=== PATIENT | female | born 1990 | race African-American/Black ===

== ENCOUNTER 2022-11-30 14:28 | Emergency (ER) | payer MEDICAID, SELFPAY ==
[2022-11-30 14:39] VITALS: BP 110/75; PULSE 106; RESP 18; TEMP 36.8; O2SAT 99; BMI 39.5
--- NOTE | 2022-11-30 16:10 | ED_ITS ---
HPI - General Adult General Time Seen by Provider: 16:10 Date Seen: 11/30/22 Chief complaint: Flank Pain Stated complaint: Diabetic complications, kidney pain Time Seen by Provider: 11/30/22 15:59 Source: patient Mode of arrival: ambulatory Limitations: no limitations History of Present Illness HPI narrative: 32-year-old female with history of diabetes who presents today with bilateral flank pain. This is been going on for 2 days. Pain is constant, sharp and stabbing. Denies hematuria or dysuria the. Denies diarrhea. Denies abdominal pain, does note nausea and vomiting. She is diabetic, has not been checking her sugars recently. She denies chest pain or shortness of breath. Had some chills but no recorded fever. No cough or running Related Data Previous Rx's Medication Instructions Recorded cefdinir 300 mg capsule 300 mg PO BID #14 caps 11/30/22 ondansetron 4 mg disintegrating 4 mg PO Q6H PRN Nausea And 11/30/22 tablet Vomiting #20 tabs Allergies Allergy/AdvReac Type Severity Reaction Status Date / Time adhesive Allergy Intermediate rash Verified 11/30/22 14:44 PFSH PFSH Social History Smoking Status: Never smoker Do you use any of these nicotine containing products: None How often do you have a drink containing alcohol: never AUDIT-C Alcohol total score: 0 Non-prescribed substance use: denies use Exam Narrative: Exam Narrative: General: Well-developed and well-nourished, crying and appears anxious Head: Atraumatic and normocephalic Eyes: Pupils are equal reactive, extraocular motions intact, conjunctiva clear ENT: External nose and ears are normal, posterior pharynx without erythema or exudate Neck: No midline cervical tenderness, full spontaneous range of motion the neck, trachea midline, no adenopathy Heart: Tachycardic rhythm, regular rate Lungs: Clear to auscultation bilaterally without wheezes or crackles Abdomen: Soft, mild diffuse tenderness, nondistended with active bowel sounds, bilateral CVA tenderness Musculoskeletal: No tenderness, deformity, or edema Neurologic: Awake, alert, and oriented x3, no gross focal neurologic deficits, cranial nerves intact as tested Psych: Mood and affect are appropriate Skin: No rashes Const: Vital Signs, click to edit/add: Vital Signs - 24 hr 11/30/22 14:39 11/30/22 17:50 Temperature 98.2 F Pulse Rate [Pulse Oximeter] 106 H 103 H Respiratory Rate 18 22 Blood Pressure [Ri ght Upper Arm] 110/75 131/74 Pulse Oximetry 99 100 Oxygen Delivery Me thod Room Air Room Air Course Course Hospital Course: 4:16 p.m. patient seen examined, prior records are reviewed. Patient presents with flank pain, she is diabetic. She is tachycardic on hypotensive. Mild diffuse abdominal tenderness, also bilateral CVA tenderness but denies urinary symptoms. Differential diagnosis includes but not limited to pyelonephritis, ureteral obstruction, ureter obstruction, enteritis, acute cholecystitis, pancreatitis, gastroenteritis, musculoskeletal pain. Labs are ordered, will defer imaging until labs returned. Toradol and Zofran are ordered. Reevaluation(s) Reevaluation #1: Lives independently interpreted by me demonstrate normal white blood cell count, mild anemia. Urine dipstick without evidence for infection but 4+ ketones as well as glucose, concern for possible DKA. Time: 16:53 Reevaluation #2: Labs independently interpreted by me demonstrate mild hyponatremia, patient is getting normal saline IV. Also hyperglycemia but normal bicarbonate and no anion gap. Urine ketones likely reflect fluid status combined with ketosis but no acidosis noted. Additional IV fluids are ordered. Time: 17:32 Reevaluation #3: Labs independently interpreted by me demonstrate a respiratory alkalosis, no evidence for metabolic acidosis or DKA. Hepatic function panels demonstrate elevated alkaline phosphatase is slightly elevated AST as well. Quantitative hCG is pending. Given abdominal pain and elevated LFTs, upper abdominal ultrasound will be ordered to evaluate for acute cholecystitis although lipase is normal. If this is reassuring, patient can be discharged with symptom management and follow-up. If beta-hCG is above the discriminatory zone, pelvic ultrasound will be ordered as well to evaluate for intrauterine in this patient who was not aware she was . Time: 18:04 Additional Reevaluation(s): 6:24 p.m. urine micro demonstrates some bacteria and white blood cells. Given flank pain and , patient will be given Rocephin in the emergency department and plan to discharge with Omnicef. 6:53 p.m. right upper quadrant ultrasound is negative for any acute findings. Pelvic ultrasound demonstrates intrauterine gestational sac 5+2 consistent with dates, LMP 10/27/22 EGA 4+6, EDC 08/03/2023. Patient is stable for discharge. Vital Signs Vital signs: Initial Vital Signs Temperature 98.2 F 11/30/22 14:39 Temperature Source Oral 11/30/22 14:39 Pulse Rate 106 H 11/30/22 14:39 Pulse Rhythm 11/30/22 14:39 Pulse Strength 3+ Normal 11/30/22 14:39 Respiratory Rate 18 11/30/22 14:39 Blood Pressure 110/75 11/30/22 14:39 Blood Pressure Mean 86 11/30/22 14:39 Pulse Oximetry 99 11/30/22 14:39 Oxygen Delivery Method 11/30/22 14:39 Vital Signs Temperature 98.2 F 11/30/22 14:39 Pulse Rate 106 H 11/30/22 14:39 Respiratory Rate 18 11/30/22 14:39 Blood Pressure 110/75 11/30/22 14:39 Pulse Oximetry 99 11/30/22 14:39 Oxygen Delivery Method 11/30/22 14:39 Temperature 98.2 F 11/30/22 14:39 Pulse Rate 103 H 11/30/22 17:50 Respiratory Rate 22 11/30/22 17:50 Blood Pressure 131/74 11/30/22 17:50 Pulse Oximetry 100 11/30/22 17:50 Oxygen Delivery Method 11/30/22 17:50 Medical Decision Making Lab Data Labs: Lab Results 11/30/22 11/30/22 11/30/22 Range/Units 16:16 16:16 16:16 WBC 9.93 (4.50-11.00) K/uL RBC 4.55 (4.00-5.20) m/uL Hgb 13.0 (12.0-16.0) gm/dL Hct 36.7 (33.0-51.0) % MCV 81 (80-100) fL MCH 29 (26-34) pg MCHC 35 (32-36) gm/dL RDW Coeff of Karo 11.0 L (11.5-15.5) % Plt Count 279 (140-440) K/uL Neut % (Auto) 76.0 H (42.0-72.0) % Lymph % (Auto) 14.2 L (20-44) % [place] % (Auto) 9.1 (0.0-11.0) % Eos % (Auto) 0.1 (0.0-7.0) % Baso % (Auto) 0.3 (0.0-3.0) % Neut # (Auto) 7.50 H (1.7-7.0) K/uL Lymph # (Auto) 1.40 (0.90-2.90) K/uL [place] # (Auto) 0.90 (0.00-0.90) K/UL Eos # (Auto) 0.01 (0.00-0.50) K/uL Baso # (Auto) 0.03 (0.00-0.30) K/uL VBG pH (7.32-7.43) VBG pCO2 (40-50) mmHG VBG pO2 (25-47) mmHG VBG HCO3 (21-28) mmol/L Sodium 128 L (135-149) mmol/L Potassium 5.0 (3.6-5.1) mmol/L Chloride 95 L (96-114) mmol/L Carbon Dioxide 22 (20-32) mmol/L BUN 7 (5-24) mg/dL Creatinine 0.7 (0.5-1.5) mg/dL Estimated Creat Clear 92.94 Estimated GFR 119 ml/min Glucose 339 H (60-115) mg/dL Calcium 9.6 (8.4-10.6) mg/dL Total Bilirubin (0.1-1.5) mg/dL Direct Bilirubin (0.0-0.5) mg/dL AST (12-35) U/L ALT (4-35) U/L Alkaline Phosphatase (40-150) U/L Total Protein (6.0-8.3) g/dL Albumin (3.3-5.0) g/dL Lipase (23-300) U/L HCG, Quant mIU/mL Urine Color Yellow (Yellow) Urine Appearance Cloudy A (Clear) Urine pH 5.5 (5.0-8.5) Ur Specific [place] <= 1.005 (1.000-1.030) Urine Protein Negative (Negative) Urine Glucose (UA) 2+ A (Negative) Urine Ketones 4+ A (Negative) Urine Blood Negative (Negative) Urine Nitrite Negative (Negative) Urine Bilirubin Negative (Negative) Urine Urobilinogen 0.2 (0.2-1.0) Ur Leukocyte Esterase Negative (Negative) Urine RBC 0-2 (0-2) Urine WBC 5-10 A (0-5) Ur Squamous Epith Cells Few (None-Few) Urine Bacteria Few A (None) Urine HCG, Qual (Negative) 11/30/22 11/30/22 11/30/22 Range/Units 16:16 16:16 17:34 WBC (4.50-11.00) K/uL RBC (4.00-5.20) m/uL Hgb (12.0-16.0) gm/dL Hct (33.0-51.0) % MCV (80-100) fL MCH (26-34) pg MCHC (32-36) gm/dL RDW Coeff of Karo (11.5-15.5) % Plt Count (140-440) K/uL Neut % (Auto) (42.0-72.0) % Lymph % (Auto) (20-44) % [place] % (Auto) (0.0-11.0) % Eos % (Auto) (0.0-7.0) % Baso % (Auto) (0.0-3.0) % Neut # (Auto) (1.7-7.0) K/uL Lymph # (Auto) (0.90-2.90) K/uL [place] # (Auto) (0.00-0.90) K/UL Eos # (Auto) (0.00-0.50) K/uL Baso # (Auto) (0.00-0.30) K/uL VBG pH 7.489 H (7.32-7.43) VBG pCO2 27 L (40-50) mmHG VBG pO2 23.6 L (25-47) mmHG VBG HCO3 20 L (21-28) mmol/L Sodium (135-149) mmol/L Potassium (3.6-5.1) mmol/L Chloride (96-114) mmol/L Carbon Dioxide (20-32) mmol/L BUN (5-24) mg/dL Creatinine (0.5-1.5) mg/dL Estimated Creat Clear Estimated GFR ml/min Glucose (60-115) mg/dL Calcium (8.4-10.6) mg/dL Total Bilirubin 1.3 (0.1-1.5) mg/dL Direct Bilirubin 1.0 H (0.0-0.5) mg/dL AST 47 H (12-35) U/L ALT 22 (4-35) U/L Alkaline Phosphatase 181 H (40-150) U/L Total Protein 8.0 (6.0-8.3) g/dL Albumin 4.5 (3.3-5.0) g/dL Lipase 79 (23-300) U/L HCG, Quant 2471.80 mIU/mL Urine Color (Yellow) Urine Appearance (Clear) Urine pH (5.0-8.5) Ur Specific [place] (1.000-1.030) Urine Protein (Negative) Urine Glucose (UA) (Negative) Urine Ketones (Negative) Urine Blood (Negative) Urine Nitrite (Negative) Urine Bilirubin (Negative) Urine Urobilinogen (0.2-1.0) Ur Leukocyte Esterase (Negative) Urine RBC (0-2) Urine WBC (0-5) Ur Squamous Epith Cells (None-Few) Urine Bacteria (None) Urine HCG, Qual POSITIVE H (Negative) Discharge Plan Discharge Clinical Impression: Urinary tract infection, as incidental finding, Diabetes mellitus with ketosis Patient Disposition: Home, Self-Care Condition: Stable Instructions: Abdominal Pain in (ED), Urinary Tract Infection in (ED), Type 2 Diabetes Management for Adults (ED) Additional Instructions: Take Tylenol as needed for pain. Do not take ibuprofen during . Follow-up with children's service worker next week to establish care and for recheck, and with your primary care provider next week. Based on your last period and your ultrasound, your due date would be August 03, 2023. Take antibiotics as prescribed Check your sugars daily Activity Level: No Restrictions Discharge Diet: Diabetic Prescriptions: New ondansetron 4 mg tablet,disintegrating 4 mg PO Q6H PRN (Reason: Nausea And Vomiting) Qty: 20 0RF cefdinir 300 mg capsule 300 mg PO BID Qty: 14 0RF Follow Up/Referrals: Juany Kwon MD [Primary Care Provider] - Stand Alone Forms: [facility] Info Instructions
[2022-11-30 16:34] LABS: Basophils Absolute Auto 0.03 K/uL (0.00-0.30); Basophils Percent Auto 0.3 % (0.0-3.0); Eosinophils Absolute Auto 0.01 K/uL (0.00-0.50); Eosinophils Percent Auto 0.1 % (0.0-7.0); Hematocrit 36.7 % (33.0-51.0); Immature Granulocytes Abs Auto 0.03 K/uL (0.00-0.30); Immature Granulocytes Pct Auto 0.3 %; Lymphocytes Percent Auto 14.2 % (20-44); Mean Corpuscular HGB Conc 35 gm/dL (32-36); Mean Corpuscular Hemoglobin 29 pg (26-34); Mean Corpuscular Volume 81 fL (80-100); Monocytes Percent Auto 9.1 % (0.0-11.0); Platelet Count* 279 K/uL (140-440); Red Blood Count 4.55 m/uL (4.00-5.20); White Blood Count* 9.93 K/uL (4.50-11.00)
[2022-11-30 16:40] LABS: Slide Review Reflex No
[2022-11-30 16:43] LABS: Ur HCG Qualitative* POSITIVE (Negative)
[2022-11-30 16:47] LABS: Appearance Urine Cloudy (Clear); Bilirubin Urine Negative (Negative); Blood Urine Negative (Negative); Color Urine Yellow (Yellow); Glucose Urine 2+ (Negative); Ketones Urine 4+ (Negative); Leukocyte Esterase Urine Negative (Negative); Nitrite Urine Negative (Negative); Protein Urine Negative (Negative); Specific Gravity Urine <= 1.005 (1.000-1.030); Urobilinogen Urine 0.2 (0.2-1.0); pH Urine 5.5 (5.0-8.5)
[2022-11-30 16:52] LABS: Chloride* 95 mmol/L (96-114)
[2022-11-30] MEDS: 0.9 % SODIUM CHLORIDE 1000 ml 1,000 ML IV ×2 (16:52→18:30)
[2022-11-30 16:55] LABS: Blood Urea Nitrogen* 7 mg/dL (5-24); Calcium* 9.6 mg/dL (8.4-10.6); Carbon Dioxide* 22 mmol/L (20-32); Creatinine* 0.7 mg/dL (0.5-1.5); Est. Creatinine Clearance* 92.94; Estimated Glomerular Filt Rate 119 ml/min; Glucose* 339 mg/dL (60-115)
[2022-11-30] MEDS: ONDANSETRON 2 MG/ML inj 4 MG IVP (16:56)
[2022-11-30 17:10] LABS: Sodium* 128 mmol/L (135-149)
[2022-11-30 17:41] LABS: HCO3 VBG 20 mmol/L (21-28); PCO2 VBG 27 mmHG (40-50); PO2 VBG 23.6 mmHG (25-47); pH VBG 7.489 (7.32-7.43)
[2022-11-30 17:45] LABS: Albumin* 4.5 g/dL (3.3-5.0)
[2022-11-30 17:48] LABS: Alanine Aminotransferase* 22 U/L (4-35); Alkaline Phosphatase* 181 U/L (40-150); Aspartate Amino Transferase* 47 U/L (12-35); Bilirubin Total* 1.3 mg/dL (0.1-1.5); Lipase* 79 U/L (23-300)
[2022-11-30] MEDS: MORPHINE 2 MG/ML inj IVP (17:49)
[2022-11-30 17:50] VITALS: BP 131/74; PULSE 103; RESP 22; O2SAT 100
--- NOTE | 2022-11-30 18:07 | CRLHL7_ITS ---
For Patients: As a result of the Century Cures Act, medical imaging exams and procedure reports are released immediately into your electronic medical record. You may view this report before your referring provider. If you have questions, please contact your health care provider. INDICATION: Abdominal pain. TECHNIQUE: Ultrasound OB pelvis transabdominal and transvaginal. Real-time issa-scale imaging of the pelvis was performed. COMPARISON: None. FINDINGS: There is a single intrauterine gestational sac, with a mean sac diameter of 6.67 millimeters, which correlates with a gestational age of 5 weeks, 2 days. Tiny 2.3 centimeter yolk sac seen. No definite pole. There is a normal appearing yolk sac. There are no gross abnormalities noted within the embryo at this early state of development. The placenta has not yet developed. There is no sign of perigestational hemorrhage. Few small fibroids, measuring up to 2.3 centimeters. The ovaries are of normal size. 3.4 centimeter right simple ovarian cyst. Likely 2.2 centimeter left ovarian corpus luteal cyst. There are no suspicious fluid collections noted in the cul-de-sac. IMPRESSION: Single intrauterine gestational sac, with mean sac diameter of 6.67 millimeters, which correlates with a gestational age of 5 weeks, 2 days. No definite pole identified, possibly related to early gestation. Recommend OB Gyne follow-up, continued trending beta HCG, and short-term ultrasound. Probable 2.2 centimeter left ovarian corpus luteal cyst. This could be followed up with on subsequent imaging. Dictated by Josué Marques MD @ 11/30/2022 7:19:00 PM (Electronically Signed)
--- NOTE | 2022-11-30 18:07 | CRLHL7_ITS ---
For Patients: As a result of the Century Cures Act, medical imaging exams and procedure reports are released immediately into your electronic medical record. You may view this report before your referring provider. If you have questions, please contact your health care provider. INDICATION: Abdominal pain. Elevated LFTs. TECHNIQUE: Ultrasound abdomen limited. Sonographic images of the right upper quadrant were obtained using issa-scale and color Doppler images. COMPARISON: CT abdomen/pelvis dated 10/13/2021. FINDINGS: Liver: Echogenicity of the liver parenchyma is within normal limits. Bile ducts: Intrahepatic bile ducts are not dilated. The common bile duct measures 0.3 cm. Gallbladder: No cholelithiasis, significant gallbladder wall thickening, or pericholecystic fluid identified. Pancreas: Pancreas is poorly visualized secondary to acoustic shadowing from overlying/adjacent bowel gas. Right kidney: The right kidney measures 11.3 cm in length. No renal calculi or significant hydronephrosis is identified. IMPRESSION: No acute intra-abdominal abnormality identified sonographically. Dictated by Jake Velasco MD @ 11/30/2022 7:17:28 PM (Electronically Signed)
[2022-11-30 18:17] LABS: Bacteria Urine Few; RBC Urine 0-2 (0-2); Squamous Epithelial Cell Urine Few (None-Few)
[2022-11-30] MEDS: cefTRIAXone 1 GM in 0.9 % SODIUM CHLORIDE Mini-bag 100 ML IVPB (19:33)
== END 2022-11-30 20:04 | disposition home or self-care (01) ==
PROVIDERS: Emergency Provider Family Medicine; PCP Family Medicine
DX: N39.0 Urinary tract infection, site not specified (principal); E11.10 Type 2 diabetes mellitus with ketoacidosis without coma; Z33.1 Pregnant state, incidental
CPT/HCPCS: 36415; 76705; 76801; 80048; 80076; 81001; 81025; 82803; 83690; 84702; 85025; 87086; 93976; 96365; 96375; 99284; J0696; J2270; J2405; J7030

== ENCOUNTER 2023-01-23 08:43 | Emergency (ER) | payer MEDICAID, SELFPAY ==
[2023-01-23 08:51] VITALS: BP 117/91; PULSE 92; RESP 18; TEMP 36.4; O2SAT 99; BMI 39.0
--- NOTE | 2023-01-23 09:12 | CRLHL7_ITS ---
For Patients: As a result of the Cures Act, medical imaging exams and procedure reports are released immediately into your electronic medical record. You may view this report before your referring provider. If you have questions, please contact your health care provider. Indication: Fall, injury Technique: Three views Comparison: None Findings: Bones: There is an oblique fracture of the lateral malleolus at the joint line with 3 millimeters lateral displacement of the distal fracture fragment. Joint spaces: Mild widening of the medial aspect of the bony mortise. Soft tissues: Prominent lateral soft tissue swelling. Dictated by Yeison Miller MD @ 01/23/2023 11:07:14 AM (Electronically Signed)
[2023-01-23] MEDS: ACETAMINOPHEN 500 MG TABLET 1000 MG PO (09:18)
[2023-01-23] MEDS: IBUPROFEN 400 MG TABLET 800 MG PO (09:19)
--- NOTE | 2023-01-23 10:08 | ED_ITS ---
HPI - Extremity Injury (Lower) General Date Seen: 01/23/23 Chief Complaint: Extremity Pain/Injury, Lower Stated Complaint: Fall/Ankle injury Time Seen by Provider: 01/23/23 08:48 Source: patient Mode of arrival: ambulatory Limitations: no limitations History of Present Illness HPI Narrative: Patient is a very nice 32-year-old female presents here after slip and in the ice, and an inversion injury of her left ankle, she complains of pain over the lateral malleolar region of her ankle, with some numbness, of this area also. She says she is really unable to bear weight no hobbled in here, jumping on her other foot. This occurred when she was dropping her daughter off at daycare. No previous history of ankle injury. She denies any other injury to her neck back head hip or knee. She did not take anything for the discomfort, and I see her in room 4. Injury: Left: ankle Type of Injury: inversion Place: school Severity: moderate Relieving factors: nothing Exacerbating factors: weight bearing, movement and palpation Context: walking Associated symptoms: snap/pop sensation Other symptoms: none Related Data Home Medications Medication Instructions Recorded Confirmed aspirin 81 mg tablet,delayed 81 mg PO DAILY 01/23/23 01/23/23 release atorvastatin 20 mg tablet 20 mg PO QPM 01/23/23 01/23/23 etonogestrel 0.12 mg-ethinyl vag ring vaginal 01/23/23 estradiol 0.015 mg/24 hr vaginal ring exenatide microspheres 2 mg/0.85 mg subcut 01/23/23 mL subcutaneous auto-injector ([email or web address]) linagliptin 5 mg tablet (Tradjenta) 5 mg PO DAILY 01/23/23 01/23/23 metformin 500 mg tablet,extended 2,000 mg PO DAILY 01/23/23 01/23/23 release 24 hr Allergies Allergy/AdvReac Type Severity Reaction Status Date / Time adhesive Allergy Intermediate rash Verified 01/23/23 08:50 Review of Systems Status of ROS: Reports: 6 or more systems reviewed and unremarkable except as noted in History and below PFSH PFS Social History Smoking Status: Never smoker Do you use any of these nicotine containing products: None How often do you have a drink containing alcohol: never AUDIT-C Alcohol total score: 0 Non-prescribed substance use: denies use Exam Narrative: Exam Narrative: Patient is seen in room 4 she is in no apparent distress, her left ankle shows swelling over the lateral malleolar region, she can bring her foot to midline, or neutral position. DP and posterior tibial pulses are normal, no significant deformity is noted other than the swelling over the lateral malleolar region. Distal compression of the tib-fib does not reproduce any discomfort. I am unable to really invert or tom her ankle due to the discomfort. No open component bleeding is noted. Const: Vital Signs, click to edit/add: Vital Signs - 24 hr 01/23/23 08:51 Temperature 97.6 F Pulse Rate [Right Pulse Oximeter] 92 Respiratory Rate 18 Blood Pressure [Ri ght Upper Arm] 117/91 H Pulse Oximetry 99 Oxygen Delivery Me thod Room Air Documenting provider has reviewed patient's vital signs: yes Course Vital Signs Vital signs: Initial Vital Signs Temperature 97.6 F 01/23/23 08:51 Temperature Source Temporal Artery Scan 01/23/23 08:51 Pulse Rate 92 01/23/23 08:51 Respiratory Rate 18 01/23/23 08:51 Blood Pressure 117/91 H 01/23/23 08:51 Blood Pressure Mean 99 01/23/23 08:51 Blood Pressure Position Sitting 01/23/23 08:51 Pulse Oximetry 99 01/23/23 08:51 Oxygen Delivery Method 01/23/23 08:51 Vital Signs Temperature 97.6 F 01/23/23 08:51 Pulse Rate 92 01/23/23 08:51 Respiratory Rate 18 01/23/23 08:51 Blood Pressure 117/91 H 01/23/23 08:51 Pulse Oximetry 99 01/23/23 08:51 Oxygen Delivery Method 01/23/23 08:51 Temperature 97.6 F 01/23/23 08:51 Pulse Rate 92 01/23/23 08:51 Respiratory Rate 18 01/23/23 08:51 Blood Pressure 117/91 H 01/23/23 08:51 Pulse Oximetry 99 01/23/23 08:51 Oxygen Delivery Method 01/23/23 08:51 MDM - Extremity Injury (Lower) Differential Diagnosis Differential diagnosis: Likely ankle sprain and strain, acute internal derangement of knee, fracture of hip, puncture wound of foot, fracture of toe and ankle fracture Medical Records Attestation: I reviewed the patient's medical records. Imaging Data Ankle x-ray: Attestation: I have reviewed the pertinent imaging results. My impression: Left ankle x-ray shows a mildly displaced left malleolar/left distal fibular fracture, there is no significant moretise change, rest of the anchor stray of the ankle looks good. Soft tissue swelling is noted. Radiologist's impression: atient: BRODY FREGOSO Facility:?[facility] Patient ID:?[id number] Site Patient ID:?[id number]. Site :?[id number] Study:?XRay Extremity Left ANKLE-01/23/2023 10:00:06 AM Ordering Physician:Shayna Ramirez Final Report: Indication: Fall, injury Technique: Three views Comparison: None Findings: Bones: There is an oblique fracture of the lateral malleolus at the joint line with 3 millimeters lateral displacement of the distal fracture fragment. Joint spaces: Mild widening of the medial aspect of the bony mortise. Soft tissues: Prominent lateral soft tissue swelling. Dictated by Yeison Miller MD @ 01/23/2023 11:07:14 AM (Electronic Signature) Discharge Plan Discharge Clinical Impression: Closed fibular fracture Patient Disposition: Home, Self-Care Condition: Stable Instructions: Leg Fracture (ED) Additional Instructions: Home rest use of nonweightbearing and crutches, Tylenol ibuprofen for the discomfort, may use stronger pain medications do not combine these with alcohol or drive. Follow-up with orthopedics as directed. Return as needed. Follow up appointment is scheduled at the [facility] on 01/26 with a 10:30am arrival time. If you have any questions or need to reschedule, please call [phone]. [facility] [place] [address] Prescriptions: No Action atorvastatin 20 mg tablet 20 mg PO QPM aspirin 81 mg tablet,delayed release (DR/EC) 81 mg PO DAILY metformin 500 mg tablet extended release 24 hr 2,000 mg PO DAILY etonogestrel-ethinyl estradiol 0.12-0.015 mg/24 hr ring vaginal Tradjenta 5 mg tablet 5 mg PO DAILY Bydureon BCise 2 mg/0.85 mL auto-injector subcut Follow Up/Referrals: Juany Kwon MD [Primary Care Provider] - Stand Alone Forms: [facility] Info Instructions Procedures Orthopedic Splinting/Casting Injury #1: Side: left Lower Extremity Injury Location: ankle Lower extremity immobilizer: short leg Applied by clinician: /DO Other Orthopedic Equipment: crutches Conclusion: patient tolerated procedure Additional Comments: Post splint placement she had a good DP pulse, good movement of her toes, she felt improved. Neurologically intact.
== END 2023-01-23 12:03 | disposition home or self-care (01) ==
PROVIDERS: Emergency Provider Family Medicine; PCP Family Medicine
DX: S82.402A Unspecified fracture of shaft of left fibula, initial encounter for closed fracture (principal); W00.9XXA Unspecified fall due to ice and snow, initial encounter
CPT/HCPCS: 29515; 73610; 99283; 99284; A9270

== ENCOUNTER 2023-02-02 10:02 | Day surgery (SDC) | payer MEDICAID, SELFPAY ==
[2023-02-02] VITALS (12 sets, daily range): BP systolic 101–124; BP diastolic 69–92; PULSE 62–85; RESP 9–18; TEMP 36.1–36.6; O2SAT 91–100; BMI 38.9
[2023-02-02] MEDS: LACTATED RINGERS 1000 ML 1,000 ML 100 ML IV (10:30)
[2023-02-02] MEDS: SODIUM CHLORIDE 0.9 % (FLUSH) 10 ML SYRINGE IVF (10:30)
--- NOTE | 2023-02-02 10:41 | SUR.PREOP ---
Patient provided home covid negative results to RN.
--- NOTE | 2023-02-02 11:45 | CRLHL7_ITS ---
For Patients: As a result of the Cures Act, medical imaging exams and procedure reports are released immediately into your electronic medical record. You may view this report before your referring provider. If you have questions, please contact your health care provider. Indication: Left ankle ORIF Technique: 4 fluoroscopic images of the left ankle. Fluoroscopic time 60.8 seconds. IMPRESSION: Fluoroscopic guidance for ORIF distal fibular fracture. Dictated by Duane Dong MD @ 02/04/2023 9:34:02 AM (Electronically Signed)
[2023-02-02] MEDS: fentaNYL 100 MCG/2 ML inj IVP (11:56)
[2023-02-02] MEDS: MIDAZOLAM HCL 1 MG/ML inj IVP (11:56)
--- NOTE | 2023-02-02 12:02 | W.PM.NB ---
Nerve Block Nerve Block Time Seen by Provider: 12:02 Date Seen: 02/02/23 Type of block requested by surgeon for post-operative analgesia: adductor canal Side: left Time out performed: Yes Verification of patient name: Yes Verification of date of : Yes Site marking: site marked Name of person performing procedure: Peña Continuous monitoring Was continuous monitoring of O2 sat, B/P, environmental monitoring technician, recorded every 15 minutes?: Yes Procedure Checklist: sterile prep, needles and gloves Ultrasound guided. Images saved: Yes Medications given in 5ml increments after negative aspiration: Ropivicaine %: 0.5 mL: 20 Needle gauge: 20 Patient tolerated procedure well: Yes Additional comments: Needle noted adjacent to nerve Block Charges Block Charge (with Pro Fee): Femoral Nerve Use of Ultrasound Machine for Block: Yes- US Guidance/pain block
--- NOTE | 2023-02-02 12:03 | W.PM.NB ---
Nerve Block Nerve Block Time Seen by Provider: 12:02 Date Seen: 02/02/23 Type of block requested by surgeon for post-operative analgesia: popliteal Side: left Time out performed: Yes Verification of patient name: Yes Verification of date of : Yes Site marking: site marked Name of person performing procedure: Peña Continuous monitoring Was continuous monitoring of O2 sat, B/P, nurse emergency, recorded every 15 minutes?: Yes Procedure Checklist: sterile prep, needles and gloves Ultrasound guided. Images saved: Yes Medications given in 5ml increments after negative aspiration: Ropivicaine %: 0.5 mL: 20 Needle gauge: 22 Patient tolerated procedure well: Yes Additional comments: Needle noted adjacent to nerve Block Charges Block Charge (with Pro Fee): Sciatic Nerve Use of Ultrasound Machine for Block: Yes- US Guidance/pain block
--- NOTE | 2023-02-02 12:04 | W.ANESCHARGE ---
Anesthesia Charges Start Date/Time Anesthesia Start Date: 02/02/23 Anesthesia Start Time: 12:12 Stop Date/Time Anesthesia Stop Date: 02/02/23 Anesthesia Stop Time: 13:41
--- NOTE | 2023-02-02 12:08 | SUR.PREOP ---
TIME?OUT:?1155 PT/mariana RN/KYLER [place]?VERIFICATION?OF?SURGICAL?SITE,?PROCEDURE,?AND?CONSENT OBTAINED?PRIOR?TO?INVASIVE?PROCEDURE.
--- NOTE | 2023-02-02 13:14 | PM.ORPRC ---
Procedure Note Date of procedure: 02/02/23 Procedure: PREOPERATIVE DIAGNOSES: 1. Left ankle Bimalleolar equivalent fracture, closed, acute POSTOPERATIVE DIAGNOSES: 1. Left ankle Bimalleolar equivalent fracture, closed, acute NAME OF OPERATION: 1. Left ankle lateral malleolus open reduction with internal fixation 2. [id number] - intraoperative fluoroscopy up to 1 hour. SURGEON: Sebastián Lindo MD DEPUTY SHERIFF BAILIFF: Yariel Velasquez PA-C Of note, an pediatric medical assistant was critical for this case to aide in patient positioning, leg manipulation, tissue retraction, closure, & splinting. ANESTHESIA: spinal plus Regional block EBL: 10 mL IMPLANTS: Arthrex fibulock 3.0 mm distal fibular intramedullary nail with 3.0 and 3.5 mm cortical nonlocking screws distally (total of 2 screws) and an end cap. TOURNIQUET: none INDICATIONS: The patient is a pleasant 32-year-old female who sustained a left ankle injury in the recent past with difficulty bearing weight. Workup included xrays which revealed an unstable ankle fracture as noted above. Given these findings, surgery was recommended to stablize the ankle. FINDINGS: Closed, comminuted, displaced lateral malleolus ankle fracture but stress radiographs revealed bimalleolar equivalent. There was edematous tissue throughout the ankle which was moderate, and some erythema within the medial ankle tissues consistent with pressure from her injury. PROCEDURE: Following a thorough discussion of risks, benefits, and alternatives, consent was obtained and the left ankle was marked. The patient was brought to the operating room and placed supine on the operating table. Induction of anesthesia was undertaken. Appropriate time out was performed identifying proper patient, site and procedure. 2 g IV Ancef was administered within 1 hour of incision preoperatively. The left lower extremity was prepped and draped in the appropriate sterile fashion using ChloraPrep. At this stage, attention was turned to the lateral malleolus fixation. Initially, a lateral x-ray helped us with the general alignment of where the guide pin would track. This was drawn on the skin for future reference. We then entered the distal fibula with a guide pin at the fibular tip according to the technique guide. It was passed into the fibula and after confirming on both AP and lateral fluoroscopic images, it was found to pass up the fibula approximately 130+ mm. The fracture was held reduced with fingers throughout the reaming to maintain its reduced position. The distal portion of the fibula was then reamed with the opening Reamer, followed by the 3.2 mm Reamer up the fibular diaphysis. The canal was very tight, and thus we progressed slowly and in the toggle fashion so as not to break through the fibula. After proper reaming, the nail was placed. The proximal fins were engaged with the torque limiting screwdriver. Distal interlocking screws were then placed from lateral to medial being cautious not to allow them to penetrate the medial fibular cortex. These had excellent purchase and were necessary given her frail bone quality. Finally, the end cap was placed and confirmed on AP and lateral views to be in appropriate position. After confirming appropriate reduction/positioning on C-arm fluoroscopic imaging, the ankle was tested for syndesmosis stability. External rotation was performed. Indeed it remained stable. No widening of the mortise was appreciated. At this stage, the wound was thoroughly irrigated with normal saline. Closure was performed with 3-0 / 4-0 Vicryl and monocryl, respectively for subcutaneous and subcuticular closure. Dressings were applied and a sugar-tong splint was applied. The patient was awoken from anesthesia and transferred to the PACU in stable condition. PLAN: 1. Elevate operative extremity. 2. Encouraged ice. 3. Percocet for pain as needed. 4. Follow up with PA visit in 2-3 weeks for wound check and splint removal. Transition to CAM boot. Advance weight-bearing slowly over the next 1-2 weeks as tolerated 5. Toe-touch weight-bearing operative lower extremity
--- NOTE | 2023-02-02 13:54 | W.ANESCHARGE ---
Anesthesia Charges Start Date/Time Anesthesia Start Date: 02/02/23 Anesthesia Start Time: 12:12 Stop Date/Time Anesthesia Stop Date: 02/02/23 Anesthesia Stop Time: 13:41
== END 2023-02-02 14:45 | disposition home or self-care (01) ==
PROVIDERS: PCP Family Medicine; Visit Provider Orthopaedic Surgery Sports Medicine
PROC: (CPT 27814; principal; 2023-02-02 11:45)
DX: S82.842A Displaced bimalleolar fracture of left lower leg, initial encounter for closed fracture (principal)
CPT/HCPCS: 27814; 01480; 73610; 76942; 82962; A4580; C1713; C1776; J2250; J2370; J2400; J2405; J2704; J2795; J3010; J7120

== ENCOUNTER 2023-09-21 09:00 | Emergency (ER) | payer MEDICAID, SELFPAY ==
[2023-09-21 09:06] VITALS: BP 131/84; PULSE 98; RESP 16; TEMP 36.8; O2SAT 95; BMI 37.7
--- NOTE | 2023-09-21 09:19 | ED_ITS ---
HPI - General Adult General Chief complaint: Extremity Pain/Injury, Lower Stated complaint: R leg injury Time Seen by Provider: 09/21/23 09:18 History of Present Illness HPI narrative: PT HAS PAIN r LOWER LEG WITH AREA OF SWELLING. FELL 2 DAYS AGO ON PAVEMENT. 33-year-old woman presenting to the emergency department complaint of right lower leg pain. Apparently fell couple days ago noting herself to be clumsy she smiles ruefully. Has began to have increasing pain in her right lower leg since. Feels like something is rubbing there she is worried there might be a ?fracture?. Or that something may have stuck there. Walking definitely exaggerates this pain making it difficult to walk. She did note the swelling there prompting her to take her compression stocking/sleeve off her left leg where she has had an ORIF and place it on the right. She is receiving icing at this time. No cough shortness of breath or chest pain. Related Data Home Medications Medication Instructions Recorded Confirmed aspirin 81 mg tablet,delayed 81 mg PO DAILY 01/23/23 05/15/23 release atorvastatin 20 mg tablet 20 mg PO QPM 01/23/23 05/15/23 etonogestrel 0.12 mg-ethinyl 1 vag ring vaginal 01/23/23 05/15/23 estradiol 0.015 mg/24 hr vaginal ring exenatide microspheres 2 mg/0.85 2 mg subcut Q7D 01/23/23 05/15/23 mL subcutaneous auto-injector ([employer]) metformin 500 mg tablet,extended 2,000 mg PO DAILY 01/23/23 05/15/23 release 24 hr ferrous sulfate 325 mg (65 mg 325 mg PO DAILY 01/31/23 05/15/23 iron) tablet empagliflozin 10 mg tablet 10 mg PO DAILY 05/15/23 05/15/23 (Jardiance) flash glucose sensor (FreeStyle #1 ea 05/15/23 05/15/23 Phoebe 2 Sensor kit) Previous Rx's Medication Instructions Recorded cyclobenzaprine 10 mg tablet 10 mg PO QPM PRN for muscle spasm 08/17/23 #10 tabs Allergies Allergy/AdvReac Type Severity Reaction Status Date / Time adhesive Allergy Intermediate rash Verified 05/15/23 15:30 house dust Allergy Verified 05/15/23 15:30 allergenic extracts Allergy Severe Anaphylaxis Uncoded 05/15/23 15:30 Review of Systems Status of ROS: Reports: 6 or more systems reviewed and unremarkable except as noted in History and below [facility] Medical History Urinary tract infection ?N39.0 - Urinary tract infection, site not specified (ICD-10) Viral upper respiratory tract infection ?J06.9 - Acute upper respiratory infection, unspecified (ICD-10) Sprain of ankle ?S93.409A - Sprain of unspecified ligament of unspecified ankle, initial encounter (ICD-10) Pain in pelvis ?R10.2 - Pelvic and perineal pain (ICD-10) Acute upper respiratory infection ?J06.9 - Acute upper respiratory infection, unspecified (ICD-10) Type 2 diabetes mellitus with hyperglycemia ?E11.65 - Type 2 diabetes mellitus with hyperglycemia (ICD-10) Surgical History S/P ORIF (open reduction internal fixation) fracture (02/02/23) ?Z98.890 - Other specified postprocedural states (ICD-10) ?Z87.81 - Personal history of (healed) traumatic fracture (ICD-10) Previous section ?Z98.891 - History of uterine scar from previous surgery (ICD-10) Family History Mother Diabetes Father Diabetes Social History Smoking Status: Never smoker Do you use any of these nicotine containing products: None How often do you have a drink containing alcohol: monthly or less AUDIT-C Alcohol total score: 1 Non-prescribed substance use: denies use Caffeine: Yes Exam Narrative: Exam Narrative: Very pleasant. NAD. Breathing easily. Skin is warm and dry. I do not see any inflammation or particular swelling the left lower extremity at this time. The right lower leg though has some mild erythema calor and a swelling at the lower fibular area not involving the ankle. There is no swelling or tenderness here. There is pea-sized nodule that seems to be hematoma perhaps under the skin. Exquisitely tender to palpation around this area. Not with tenderness really to the tibial. Const: Vital Signs, click to edit/add: Vital Signs - 24 hr 09/21/23 09:06 Temperature 98.3 F Pulse Rate [Pulse Oximeter] 98 Respiratory Rate 16 Blood Pressure [Ri ght Upper Arm] 131/84 Pulse Oximetry 95 Oxygen Delivery Me thod Room Air Documenting provider has reviewed patient's vital signs: yes Course Vital Signs Vital signs: Initial Vital Signs Temperature 98.3 F 09/21/23 09:06 Temperature Source Temporal Artery Scan 09/21/23 09:06 Pulse Rate 98 09/21/23 09:06 Respiratory Rate 16 09/21/23 09:06 Blood Pressure 131/84 09/21/23 09:06 Blood Pressure Mean 99 09/21/23 09:06 Blood Pressure Position Supine 09/21/23 09:06 Pulse Oximetry 95 09/21/23 09:06 Oxygen Delivery Method Room Air 09/21/23 09:06 Vital Signs Temperature 98.3 F 09/21/23 09:06 Pulse Rate 98 09/21/23 09:06 Respiratory Rate 16 09/21/23 09:06 Blood Pressure 131/84 09/21/23 09:06 Pulse Oximetry 95 09/21/23 09:06 Oxygen Delivery Method Room Air 09/21/23 09:06 Temperature 98.3 F 09/21/23 09:06 Pulse Rate 98 09/21/23 09:06 Respiratory Rate 16 09/21/23 09:06 Blood Pressure 131/84 09/21/23 09:06 Pulse Oximetry 95 09/21/23 09:06 Oxygen Delivery Method Room Air 09/21/23 09:06 Medical Decision Making MDM Narrative Medical decision making narrative: Has a good deal of pain. I would anticipate even with a fibular fracture that she would be ambulatory. Can certainly look for this. Otherwise I would favor hematoma. Not in the area where I would be concerned about DVT at this time. Imaging is pending. Ice pack has been placed. Two-view x-ray of the tib-fib by my read shows some calcification along the interosseous area distally indicating old injury. I do not see acute bony abnormality. Will joint spaces. On reassessment still with some calor overall little less swollen. Might need to rest this for a little bit. Wonder if there may have been some disruption of the fascial plane otherwise. She reports having crutches at home. See patient discharge plan. Discharge Plan Discharge Clinical Impression: Hematoma, Contusion Patient Disposition: Home, Self-Care Condition: Stable Additional Instructions: As discussed, I would continue to ice your lower leg 2-3 times daily over the next few days. Can use that 6 inch Mick wrap to hold on an ice pack/bag as well as to provide some compression otherwise if it feels good. Ibuprofen, acetaminophen. Might need to use crutches for a few days as well just to take some of the pressure off. Follow-up if simply not improved in a week. Prescriptions: No Action Jardiance 10 mg tablet 10 mg PO DAILY (DME) FreeStyle Phoebe 2 Sensor Kit See Rx Instructions .ROUTE .MEDSUPPLY Qty: 1 Patient Comments: [NO ORIGINAL SIG] Rx Instructions: As directed atorvastatin 20 mg tablet 20 mg PO QPM aspirin 81 mg tablet,delayed release (DR/EC) 81 mg PO DAILY metformin 500 mg tablet extended release 24 hr 2,000 mg PO DAILY etonogestrel-ethinyl estradiol 0.12-0.015 mg/24 hr ring 1 vag ring vaginal Bydureon BCise 2 mg/0.85 mL auto-injector 2 mg subcut Q7D ferrous sulfate 325 mg (65 mg iron) tablet 325 mg PO DAILY cyclobenzaprine 10 mg tablet 10 mg PO QPM PRN (Reason: for muscle spasm) Qty: 10 0RF Follow Up/Referrals: Juany Kwon MD [Primary Care Provider] - Stand Alone Forms: [facility] Info Instructions
--- NOTE | 2023-09-21 09:49 | CRLHL7_ITS ---
For Patients: As a result of the Cures Act, medical imaging exams and procedure reports are released immediately into your electronic medical record. You may view this report before your referring provider. If you have questions, please contact your health care provider. INDICATION: Fell yesterday, pain and swelling COMPARISON: None. TECHNIQUE: Two views right tibia and fibula. FINDINGS: BONES: No acute or healing fracture. Mild heterotopic ossification along the distal tibiofibular syndesmosis is probably related to a remote prior injury. Normal mineralization. No focal bone lesion. JOINT: Grossly normal knee and ankle joint alignment. No knee joint effusion. Joint spaces: Normal. Soft Tissues: Normal. No foreign body. IMPRESSION: No acute or worrisome findings in the right tibia or fibula. Dictated by Abigail Lamar MD @ 09/21/2023 10:49:05 AM (Electronically Signed)
== END 2023-09-21 12:01 | disposition home or self-care (01) ==
PROVIDERS: Emergency Provider Family Medicine; PCP Family Medicine
DX: S80.11XA Contusion of right lower leg, initial encounter (principal); W18.30XA Fall on same level, unspecified, initial encounter
CPT/HCPCS: 73590; 99283; 99284

== ENCOUNTER 2023-11-08 04:13 | Emergency (ER) | payer MEDICAID, SELFPAY ==
[2023-11-08 04:18] VITALS: BP 132/92; PULSE 82; RESP 18; TEMP 37.4; O2SAT 98; BMI 37.7
--- NOTE | 2023-11-08 04:21 | ED_ITS ---
HPI - General Adult General Date Seen: 11/08/23 Chief complaint: Cough Stated complaint: headache, runny nose, cough Time Seen by Provider: 11/08/23 04:18 History of Present Illness HPI narrative: This is a 33-year-old female with a history of type 2 diabetes (recently poorly controlled, so was started on new medications. Previously on empagliflozin, metformin, bydureon, now also on liraglutide), who presents to the ER [facility] for evaluation of stuffy nose, cough, sore throat, headaches, chills. She was at a [employer] with her family 6 days ago on Sunday. She did note at the time but her niece was positive for COVID at the [employer]. She began to feel ill a couple of days later on Sunday. Symptoms were initially stuffy nose. Since then she has also had cough, intermittent warm spells and fevers. She has also developed a throbbing frontal headache. She went to work on Sunday but was off work on Sunday and Sunday. She needs to go to work this morning but since she is not getting better, her boss told her to come here. Her primary concern is that she has a throbbing headache. She has been trying to stay hydrated and drink water. She has been drinking tea. Appetite has been decreased. No nausea, vomiting, or diarrhea. No abdominal pain. Although she has a nonproductive cough she is not short of breath. No chest pain. She did note some hoarseness and losing her voice yesterday and the day before but that is actually getting better this morning. She has been taking her prescribed aspirin (81 mg daily) for headache but is not helping., She has a [employer] glucose monitor but does not know her blood sugar because she has been out of her prescription for her supplies lately. She says she has new prescriptions to get them filled. Related Data Home Medications Medication Instructions Recorded Confirmed aspirin 81 mg tablet,delayed 81 mg PO DAILY 01/23/23 11/08/23 release atorvastatin 20 mg tablet 20 mg PO QPM 01/23/23 11/08/23 etonogestrel 0.12 mg-ethinyl 1 vag ring vaginal 01/23/23 05/15/23 estradiol 0.015 mg/24 hr vaginal ring exenatide microspheres 2 mg/0.85 2 mg subcut Q7D 01/23/23 11/08/23 mL subcutaneous auto-injector ([employer] BCise) metformin 500 mg tablet,extended 2,000 mg PO DAILY 01/23/23 11/08/23 release 24 hr ferrous sulfate 325 mg (65 mg 325 mg PO DAILY 01/31/23 11/08/23 iron) tablet empagliflozin 10 mg tablet 10 mg PO DAILY 05/15/23 11/08/23 (Jardiance) flash glucose sensor (FreeStyle #1 ea 05/15/23 05/15/23 Phoebe 2 Sensor kit) liraglutide 0.6 mg/0.1 mL (18 mg/3 0.6 mg subcut DAILY 11/08/23 11/08/23 mL) subcutaneous pen injector (Victoza 2-Josh) Previous Rx's Medication Instructions Recorded cyclobenzaprine 10 mg tablet 10 mg PO QPM PRN for muscle spasm 08/17/23 #10 tabs nirmatrelvir 300 mg (150 mg See Rx Instructions PO .COMPLEX 11/08/23 x2)-ritonavir 100 mg tablet,dose #30 ea pack (Paxlovid) Allergies Allergy/AdvReac Type Severity Reaction Status Date / Time adhesive Allergy Intermediate rash Verified 05/15/23 15:30 house dust Allergy Verified 05/15/23 15:30 allergenic extracts Allergy Severe Anaphylaxis Uncoded 05/15/23 15:30 [facility] Medical History Urinary tract infection ?N39.0 - Urinary tract infection, site not specified (ICD-10) Viral upper respiratory tract infection ?J06.9 - Acute upper respiratory infection, unspecified (ICD-10) Sprain of ankle ?S93.409A - Sprain of unspecified ligament of unspecified ankle, initial encounter (ICD-10) Pain in pelvis ?R10.2 - Pelvic and perineal pain (ICD-10) Acute upper respiratory infection ?J06.9 - Acute upper respiratory infection, unspecified (ICD-10) Type 2 diabetes mellitus with hyperglycemia ?E11.65 - Type 2 diabetes mellitus with hyperglycemia (ICD-10) Surgical History S/P ORIF (open reduction internal fixation) fracture (02/02/23) ?Z98.890 - Other specified postprocedural states (ICD-10) ?Z87.81 - Personal history of (healed) traumatic fracture (ICD-10) Previous section ?Z98.891 - History of uterine scar from previous surgery (ICD-10) Family History Mother Diabetes Father Diabetes Social History Smoking Status: Never smoker Do you use any of these nicotine containing products: None Second hand tobacco smoke exposure: No How often do you have a drink containing alcohol: monthly or less AUDIT-C Alcohol total score: 1 Non-prescribed substance use: denies use Caffeine: Yes service: No Exam Narrative: Exam Narrative: Constitutional: Appears well-developed and well-nourished. Alert. Conversant. Sitting up on the edge of her bed. Eyes are bright. Non toxic. HENT: Head: Atraumatic. No depressed skull fracture, Raccoon Eyes, Rivera's sign, or hemotympanum. Face normal. TMs normal bilaterally . canals and mastoids normal. Nose: Nonpurulent rhinorrhea, otherwise Nose normal. Mouth/Throat: Oral mucosa is clear and moist. no trismus. Pharynx minimally erythematous. Tonsils symmetric. No tonsillar enlargement, erythema, or exudate. Uvula midline. Phonation normal. Eyes: Conjunctivae normal. EOM normal. Pupils equal, round, and reactive to light. No scleral icterus. Neck: Normal range of motion. Neck supple. No tracheal deviation present. Cardiovascular: Normal rate, regular rhythm. No gallop. No friction rub. No murmur heard. Symmetric radial artery pulses Pulmonary/Chest: Effort normal. No stridor. No respiratory distress. No wheezes. No rales. No rhonchi . No tenderness. Musculoskeletal: RUE: Normal range of motion. No tenderness. No deformity LUE: Normal range of motion. No tenderness. No deformity RLE: Normal range of motion. No edema. No tenderness. No deformity LLE: Normal range of motion. No edema. No tenderness. No deformity Lymph: No cervical adenopathy. Neurological: Alert and oriented to person, place, and time. Normal strength. CN II-VII intact. No sensory deficit. GCS eye subscore is 4. GCS verbal subscore is 5. GCS motor subscore is 6. Normal coordination Skin: Skin is warm and dry. No rash noted. No pallor. Normal capillary refill. Psychiatric: Normal mood. Normal affect. Const: Vital Signs, click to edit/add: Vital Signs - 24 hr 11/08/23 04:18 Temperature 99.3 F Pulse Rate [Pulse Oximeter] 82 Respiratory Rate 18 Blood Pressure [Le ft Upper Arm] 132/92 H Pulse Oximetry 98 Oxygen Delivery Me thod Room Air Course Vital Signs Vital signs: Initial Vital Signs Temperature 99.3 F 11/08/23 04:18 Temperature Source Temporal Artery Scan 11/08/23 04:18 Pulse Rate 82 11/08/23 04:18 Respiratory Rate 18 11/08/23 04:18 Blood Pressure 132/92 H 11/08/23 04:18 Blood Pressure Mean 105 11/08/23 04:18 Blood Pressure Position Sitting 11/08/23 04:18 Pulse Oximetry 98 11/08/23 04:18 Oxygen Delivery Method Room Air 11/08/23 04:18 Vital Signs Temperature 99.3 F 11/08/23 04:18 Pulse Rate 82 11/08/23 04:18 Respiratory Rate 18 11/08/23 04:18 Blood Pressure 132/92 H 11/08/23 04:18 Pulse Oximetry 98 11/08/23 04:18 Oxygen Delivery Method Room Air 11/08/23 04:18 Temperature 99.3 F 11/08/23 04:18 Pulse Rate 82 11/08/23 04:18 Respiratory Rate 18 11/08/23 04:18 Blood Pressure 132/92 H 11/08/23 04:18 Pulse Oximetry 98 11/08/23 04:18 Oxygen Delivery Method Room Air 11/08/23 04:18 Medications Administered Medications: Discontinued Medications Generic Name Dose Route Start Last Admin Trade Name Freq PRN Reason Stop Dose Admin Ibuprofen 600 mg 11/08/23 04:42 11/08/23 04:50 Ibuprofen 600 Mg Tablet PO 11/08/23 04:43 600 mg ONCE ONE Administration Oxymetazoline HCl 1 spray 11/08/23 04:42 11/08/23 04:51 Oxymetazoline 0.05% Nasal [place] NOSTRIL-B 1 spray BID PRN Administration Medical Decision Making MDM Narrative Medical decision making narrative: This patient presents for evaluation of headache, nasal congestion, cough, sore throat, hoarse voice. She was exposed to her niece with COVID 5 days ago. This is consistent with an upper respiratory tract infection. Viral testing positive for coronavirus, and negative for influenza and RSV.. There is no signs at this point of serious bacterial infection such as OM, RPA, epiglottitis, [employer]OUS[employer], strep pharyngitis, pneumonia, sinusitis, meningitis, bacteremia, serious bacterial infection. Given clear lungs, fever curve, no hypoxia and no respiratory distress I do not feel a CXR is indicated at this point as the probability of bacterial pneumonia is very unlikely. There are no gastrointestinal symptoms at this point and no signs of dehydration. She is diabetic. She has not been monitoring her blood sugar lately, so does not know where it has been running. Sugar today is 344. She is not a type 1 diabetic to be at risk for DKA. Investigating why she has not been monitoring her sugar, it turns out she did not have her [employer] testing supplies at home, but she says she now has them. She will definitely set up her glucose monitor and start monitoring her sugar closely today. Goal will be to for her to take her meds and follow dietary restrictions to keep her sugar less than 200. She think she will be able to do that. With her diabetes and positive coronavirus test, since she is unvaccinated, she is at high risk for serious illness. Fortunately she has had 1 previous COVID in the illness which may give her some baseline immunity. I do think she is a candidate for Paxlovid. In reviewing her medication list she should need to hold her atorvastatin while on Paxlovid but her other meds should be compatible, or cording to [place] interaction database as well as EMR based interaction checks. Close followup with primary care physician is indicated. Return to ED for fever > 103, protracted vomiting, confusion, or other worsening. Lab Data Labs: Lab Results 11/08/23 Range/Units 04:24 SARS-CoV-2 (PCR) POSITIVE SARS-CoV-2 A (Negative) Influenza Type A (PCR) Negative PCR FLU A (Negative) Influenza Type B (PCR) Negative PCR FLU B (Negative) RSV (PCR) Negative PCR RSV (Negative) Discharge Plan Discharge Clinical Impression: COVID-19 Patient Disposition: Home, Self-Care Condition: Stable Instructions: COVID-19 (Coronavirus Disease 2019) (ED), COVID-19: Slow the Coronavirus Spread (ED) Additional Instructions: As we discussed, please continue to treat her symptoms as best you can at home. Drink plenty of fluids, stay hydrated. Eat healthy foods as tolerated to help keep your energy. Monitor blood sugar closely and take your normal medications. Your goal to keep her blood sugar less than 200. Please come back to the ER right away if you develop worsening cough, trouble breathing oxygen measurements below 90%, have uncontrolled vomiting or dehydration, severe headache, or any other concerns. Use Paxlovid twice daily for 5 days to help prevent severe illness and reduce the chances of hospitalization from COVID. Do not take atorvastatin while you are on Paxlovid. You can continue on your other medications. You should stay home and do not go to work until 11/14/2023, Prescriptions: New Paxlovid 300 mg (150 mg x 2)-100 mg tablets,dose pack See Rx Instructions .ROUTE .COMPLEX Qty: 30 0RF Rx Instructions: take TWO 150 mg tablets of nirmatrelvir with ONE 100 mg tablet of ritonavir twice daily for 5 days No Action Jardiance 10 mg tablet 10 mg PO DAILY (DME) FreeStyle Phoebe 2 Sensor Kit See Rx Instructions .ROUTE .MEDSUPPLY Qty: 1 Patient Comments: [NO ORIGINAL SIG] Rx Instructions: As directed Victoza 2-Josh 0.6 mg/0.1 mL (18 mg/3 mL) pen injector 0.6 mg subcut DAILY atorvastatin 20 mg tablet 20 mg PO QPM aspirin 81 mg tablet,delayed release (DR/EC) 81 mg PO DAILY metformin 500 mg tablet extended release 24 hr 2,000 mg PO DAILY etonogestrel-ethinyl estradiol 0.12-0.015 mg/24 hr ring 1 vag ring vaginal Bydureon BCise 2 mg/0.85 mL auto-injector 2 mg subcut Q7D ferrous sulfate 325 mg (65 mg iron) tablet 325 mg PO DAILY cyclobenzaprine 10 mg tablet 10 mg PO QPM PRN (Reason: for muscle spasm) Qty: 10 0RF Follow Up/Referrals: Juany Kwon MD [Primary Care Provider] - Stand Alone [facility] Info Inst[facility]
[2023-11-08] MEDS: IBUPROFEN 600 MG TABLET PO (04:50)
[2023-11-08] MEDS: OXYMETAZOLINE 0.05% NASAL SPRAY 1 SPRAY NOSTRIL-B (04:51)
[2023-11-08 05:06] LABS: PCR FLU A Negative PCR FLU A (Negative); PCR FLU B Negative PCR FLU B (Negative); PCR RSV Negative PCR RSV (Negative)
[2023-11-08 05:10] LABS: SARS PCR* POSITIVE SARS-CoV-2 (Negative)
[2023-12-06 10:40] LABS: Glucose, Point-of-Care* 344 mg/dl (60-115)
== END 2023-11-08 05:51 | disposition home or self-care (01) ==
PROVIDERS: Emergency Provider Emergency Medicine; PCP Family Medicine
DX: U07.1 COVID-19 (principal)
CPT/HCPCS: 82947; 82962; 87631; 99283; A9270

== ENCOUNTER 2023-11-14 11:55 | Emergency (ER) | payer MEDICAID, SELFPAY ==
[2023-11-14 12:05] VITALS: BP 114/73; PULSE 85; RESP 18; TEMP 36.9; O2SAT 98; BMI 37.3
--- NOTE | 2023-11-14 14:30 | ED.GENADULT ---
HPI - General Adult General Time Seen by Provider: 14:31 Date Seen: 11/14/23 Chief complaint: Cough Stated complaint: cough, covid+ on 11/08 Time Seen by Provider: 11/14/23 14:30 Source: patient and RN notes reviewed Mode of arrival: ambulatory Limitations: no limitations History of Present Illness HPI narrative: Patient is a very pleasant 33-year-old female with a history of type 2 diabetes who comes to the emergency room requesting note to return to work. Patient notes that her boss at [employer] would like her to return to work tomorrow and he would like her checked out in order to do that. Patient states she initially went to urgent care but was told that they are no longer taking any patient's today but they did make a follow-up appointment for her on Friday 11/16. She came to the emergency room noting that she still has a persistent cough. She does have a production of yellow sputum. She has had resolution of her fevers. She denies any shortness of breath today. Occasionally she sent has some heaviness in her chest. She is a nonsmoker. Denies lower extremity edema history of DVT or PE. She still has a slight residual sore throat but is able to eat and drink. Patient diagnosed initially with COVID on 11/08 which would have been her 3rd day of symptoms. Using 11 07 as day 1 today is day 8. Related Data Home Medications Medication Instructions Recorded Confirmed aspirin 81 mg tablet,delayed 81 mg PO DAILY 01/23/23 11/14/23 release atorvastatin 20 mg tablet 20 mg PO QPM 01/23/23 11/14/23 etonogestrel 0.12 mg-ethinyl 1 vag ring vaginal 01/23/23 05/15/23 estradiol 0.015 mg/24 hr vaginal ring exenatide microspheres 2 mg/0.85 2 mg subcut Q7D 01/23/23 11/14/23 mL subcutaneous auto-injector ([employer] metformin 500 mg tablet,extended 2,000 mg PO DAILY 01/23/23 11/14/23 release 24 hr ferrous sulfate 325 mg (65 mg 325 mg PO DAILY 01/31/23 11/14/23 iron) tablet empagliflozin 10 mg tablet 10 mg PO DAILY 05/15/23 11/14/23 (Jardiance) flash glucose sensor ([employer] #1 ea 05/15/23 05/15/23 Phoebe 2 Sensor kit) liraglutide 0.6 mg/0.1 mL (18 mg/3 0.6 mg subcut DAILY 11/08/23 11/14/23 mL) subcutaneous pen injector (Victoza 2-Josh) Previous Rx's Medication Instructions Recorded cyclobenzaprine 10 mg tablet 10 mg PO QPM PRN for muscle spasm 08/17/23 #10 tabs nirmatrelvir 300 mg (150 mg See Rx Instructions PO .COMPLEX 11/08/23 x2)-ritonavir 100 mg tablet,dose #30 ea pack (Paxlovid) Allergies Allergy/AdvReac Type Severity Reaction Status Date / Time adhesive Allergy Intermediate rash Verified 11/14/23 12:11 house dust Allergy Verified 11/14/23 12:11 allergenic extracts Allergy Severe Anaphylaxis Uncoded 05/15/23 15:30 Review of Systems Status of ROS: Reports: 10 or more systems reviewed and unremarkable except as noted in History and below Const: Denies: fever or chills ENMT: Reports: throat pain; Denies: neck pain, difficulty swallowing or hoarseness Cardio: Denies: chest pain, palpitations, swelling of feet/ankles, lightheadedness or shortness of breath with exertion Resp: Reports: cough; Denies: shortness of breath or wheezing GI: Reports: nausea; Denies: abdominal pain, vomiting, diarrhea or difficulty swallowing : Denies: painful urination Musculo: Denies: back pain or neck pain Allergy/Immuno: Denies: wheezing PFSH PFSH Medical History Urinary tract infection ?N39.0 - Urinary tract infection, site not specified (ICD-10) Viral upper respiratory tract infection ?J06.9 - Acute upper respiratory infection, unspecified (ICD-10) Sprain of ankle ?S93.409A - Sprain of unspecified ligament of unspecified ankle, initial encounter (ICD-10) Pain in pelvis ?R10.2 - Pelvic and perineal pain (ICD-10) Acute upper respiratory infection ?J06.9 - Acute upper respiratory infection, unspecified (ICD-10) Type 2 diabetes mellitus with hyperglycemia ?E11.65 - Type 2 diabetes mellitus with hyperglycemia (ICD-10) Surgical History S/P ORIF (open reduction internal fixation) fracture (02/02/23) ?Z98.890 - Other specified postprocedural states (ICD-10) ?Z87.81 - Personal history of (healed) traumatic fracture (ICD-10) Previous section ?Z98.891 - History of uterine scar from previous surgery (ICD-10) Family History Mother Diabetes Father Diabetes Social History Smoking Status: Never smoker Do you use any of these nicotine containing products: None Second hand tobacco smoke exposure: No How often do you have a drink containing alcohol: monthly or less AUDIT-C Alcohol total score: 1 Non-prescribed substance use: denies use Caffeine: Yes service: No Exam Narrative: Exam Narrative: Alert and oriented nontoxic in appearance. Very pleasant woman in no acute distress. Eyes are clear. Oral cavity with moist mucous membranes without erythema in the posterior oropharynx. Neck is supple without lymphadenopathy. Heart with regular rate and rhythm lungs are clear in all lung murillo. Lower extremities without edema and there is no tenderness. Const: Vital Signs, click to edit/add: Vital Signs - 24 hr 11/14/23 12:05 Temperature 98.4 F Pulse Rate [Pulse Oximeter] 85 Respiratory Rate 18 Blood Pressure [Ri ght Upper Arm] 114/73 Pulse Oximetry 98 Oxygen Delivery Me thod Room Air Documenting provider has reviewed patient's vital signs: yes Course Vital Signs Vital signs: Initial Vital Signs Temperature 98.4 F 11/14/23 12:05 Temperature Source Temporal Artery Scan 11/14/23 12:05 Pulse Rate 85 11/14/23 12:05 Respiratory Rate 18 11/14/23 12:05 Blood Pressure 114/73 11/14/23 12:05 Blood Pressure Mean 86 11/14/23 12:05 Blood Pressure Position Sitting 11/14/23 12:05 Pulse Oximetry 98 11/14/23 12:05 Oxygen Delivery Method Room Air 11/14/23 12:05 Vital Signs Temperature 98.4 F 11/14/23 12:05 Pulse Rate 85 11/14/23 12:05 Respiratory Rate 18 11/14/23 12:05 Blood Pressure 114/73 11/14/23 12:05 Pulse Oximetry 98 11/14/23 12:05 Oxygen Delivery Method Room Air 11/14/23 12:05 Temperature 98.4 F 11/14/23 12:05 Pulse Rate 85 11/14/23 12:05 Respiratory Rate 18 11/14/23 12:05 Blood Pressure 114/73 11/14/23 12:05 Pulse Oximetry 98 11/14/23 12:05 Oxygen Delivery Method Room Air 11/14/23 12:05 Medical Decision Making MDM Narrative Medical decision making narrative: 1. Post COVID cough-lung sounds are clear at this time. Do not feel that we need to proceed with chest x-ray or consider antibiotics at this time. Will allow patient to return to work but do suggesting masking an additional 2 days. If she is not improving or has worsening symptoms would have her follow through with the urgent care appointment on Sunday which is already scheduled. If she has the onset of fevers and difficulty breathing would have her return to the emergency room. 2. Disposition-home at this time. Note for work that she may return tomorrow per. Medical Records Medical records reviewed: Yes I reviewed the patient's medical records Discharge Plan Discharge Clinical Impression: COVID-19 Patient Disposition: Home, Self-Care Condition: Unchanged Additional Instructions: Wear mask at work for an additional 2 days. Seek medical attention for worsening symptoms especially worsening of cough or fever. Prescriptions: No Action Jardiance 10 mg tablet 10 mg PO DAILY (DME) FreeStyle Phoebe 2 Sensor Kit See Rx Instructions .ROUTE .MEDSUPPLY Qty: 1 Patient Comments: [NO ORIGINAL SIG] Rx Instructions: As directed Victoza 2-Josh 0.6 mg/0.1 mL (18 mg/3 mL) pen injector 0.6 mg subcut DAILY Paxlovid 300 mg (150 mg x 2)-100 mg tablets,dose pack See Rx Instructions .ROUTE .COMPLEX Qty: 30 0RF Rx Instructions: take TWO 150 mg tablets of nirmatrelvir with ONE 100 mg tablet of ritonavir twice daily for 5 days atorvastatin 20 mg tablet 20 mg PO QPM aspirin 81 mg tablet,delayed release (DR/EC) 81 mg PO DAILY metformin 500 mg tablet extended release 24 hr 2,000 mg PO DAILY etonogestrel-ethinyl estradiol 0.12-0.015 mg/24 hr ring 1 vag ring vaginal Bydureon BCise 2 mg/0.85 mL auto-injector 2 mg subcut Q7D ferrous sulfate 325 mg (65 mg iron) tablet 325 mg PO DAILY cyclobenzaprine 10 mg tablet 10 mg PO QPM PRN (Reason: for muscle spasm) Qty: 10 0RF Follow Up/Referrals: Juany Kwon MD [Primary Care Provider] - Stand Alone Forms: [employer] Info Instructions
== END 2023-11-14 15:03 | disposition home or self-care (01) ==
LOC: ED 14:46
PROVIDERS: Emergency Provider Family Medicine; PCP Family Medicine
DX: U07.1 COVID-19 (principal)
CPT/HCPCS: 99283

== ENCOUNTER 2024-02-24 14:25 | Emergency (ER) | payer MEDICAID, SELFPAY ==
[2024-02-24 14:36] VITALS: BP 116/80; PULSE 106; RESP 18; TEMP 36.8; O2SAT 97; BMI 37.7
[2024-02-24 15:19] LABS: PCR FLU A Negative PCR FLU A (Negative); PCR FLU B POSITIVE PCR FLU B (Negative); PCR RSV Negative PCR RSV (Negative); SARS PCR* Negative SARS-CoV-2 (Negative)
--- NOTE | 2024-02-24 15:51 | ED.GENADULT ---
HPI - General Adult General Chief complaint: Cough Stated complaint: cough, vomiting Time Seen by Provider: 02/24/24 15:39 Source: patient Mode of arrival: ambulatory Limitations: no limitations History of Present Illness HPI narrative: 33-year-old female coming in today complaining of not feeling well for about a week. She complains of achiness, congestion, cough, fevers. She denies chest or abdominal pain. Coughs or nonproductive. She also complains of right-sided earache. She states that she has been having some diarrhea. Her son was diagnosed with influenza B today. Past Medical history is significant for diabetes type 2. Related Data Home Medications Medication Instructions Recorded Confirmed aspirin 81 mg tablet,delayed 81 mg PO DAILY 01/23/23 11/14/23 release atorvastatin 20 mg tablet 20 mg PO QPM 01/23/23 11/14/23 etonogestrel 0.12 mg-ethinyl 1 vag ring vaginal 01/23/23 05/15/23 estradiol 0.015 mg/24 hr vaginal ring exenatide microspheres 2 mg/0.85 2 mg subcut Q7D 01/23/23 11/14/23 mL subcutaneous auto-injector ([employer]) metformin 500 mg tablet,extended 2,000 mg PO DAILY 01/23/23 11/14/23 release 24 hr ferrous sulfate 325 mg (65 mg 325 mg PO DAILY 01/31/23 11/14/23 iron) tablet empagliflozin 10 mg tablet 10 mg PO DAILY 05/15/23 11/14/23 (Jardiance) flash glucose sensor (FreeStyle #1 ea 05/15/23 05/15/23 Phoebe 2 Sensor kit) liraglutide 0.6 mg/0.1 mL (18 mg/3 0.6 mg subcut DAILY 11/08/23 11/14/23 mL) subcutaneous pen injector ([employer] 2-Josh) Previous Rx's Medication Instructions Recorded cyclobenzaprine 10 mg tablet 10 mg PO QPM PRN for muscle spasm 08/17/23 #10 tabs nirmatrelvir 300 mg (150 mg See Rx Instructions PO .COMPLEX 11/08/23 x2)-ritonavir 100 mg tablet,dose #30 ea pack (Paxlovid) amoxicillin 500 mg tablet 1,000 mg (2 x 500 mg) PO BID 5 02/24/24 days #20 tabs Allergies Allergy/AdvReac Type Severity Reaction Status Date / Time adhesive Allergy Intermediate rash Verified 11/14/23 12:11 house dust Allergy Verified 11/14/23 12:11 allergenic extracts Allergy Severe Anaphylaxis Uncoded 05/15/23 15:30 Review of Systems Status of ROS: Reports: 10 or more systems reviewed and unremarkable except as noted in History and below [facility] Medical History Urinary tract infection ?N39.0 - Urinary tract infection, site not specified (ICD-10) Viral upper respiratory tract infection ?J06.9 - Acute upper respiratory infection, unspecified (ICD-10) Sprain of ankle ?S93.409A - Sprain of unspecified ligament of unspecified ankle, initial encounter (ICD-10) Pain in pelvis ?R10.2 - Pelvic and perineal pain (ICD-10) Acute upper respiratory infection ?J06.9 - Acute upper respiratory infection, unspecified (ICD-10) Type 2 diabetes mellitus with hyperglycemia ?E11.65 - Type 2 diabetes mellitus with hyperglycemia (ICD-10) Surgical History S/P ORIF (open reduction internal fixation) fracture (02/02/23) ?Z98.890 - Other specified postprocedural states (ICD-10) ?Z87.81 - Personal history of (healed) traumatic fracture (ICD-10) Previous section ?Z98.891 - History of uterine scar from previous surgery (ICD-10) Family History Mother Diabetes Father Diabetes Social History Smoking Status: Never smoker Do you use any of these nicotine containing products: None Second hand tobacco smoke exposure: No How often do you have a drink containing alcohol: monthly or less AUDIT-C Alcohol total score: 1 Non-prescribed substance use: denies use Caffeine: Yes service: No Exam Narrative: Exam Narrative: Well-nourished well-developed patient in no acute distress. Alert and oriented. Answers questions appropriately. Mood and affect are appropriate. Thoughts are goal oriented and rational. No tangential or magical thinking noted. Patient speaks in full sentences without needing to catch her breath. Appears tired. HEENT: Normocephalic atraumatic. Pupils are equally round reactive to light. Extraocular muscles are intact. Conjunctivae are moist without any icterus noted. Moist mucous membranes. Posterior pharynx is normal. Neck is soft without any lymphadenopathy or thyromegaly. No masses are appreciated. Right TM is red and bulging, left TM is normal. Cardiovascular: Heart is regular rate and rhythm S1 and S2 are present without any murmurs. Lungs: Clear to auscultation bilaterally no wheezes rhonchi or rales are appreciated. Patient takes deep breaths without any discomfort. Abdomen: Soft and nontender nondistended with normal bowel sounds. Skin: Well perfused without any obvious rashes. Const: Vital Signs, click to edit/add: Vital Signs - 24 hr 02/24/24 14:36 Temperature 98.3 F Pulse Rate [Pulse Oximeter] 106 H Respiratory Rate 18 Blood Pressure [Ri ght Upper Arm] 116/80 Pulse Oximetry 97 Oxygen Delivery Me thod Room Air Course Course ED Course: Triple swab is positive for influenza B. Vital Signs Vital signs: Initial Vital Signs Temperature 98.3 F 02/24/24 14:36 Temperature Source Temporal Artery Scan 02/24/24 14:36 Pulse Rate 106 H 02/24/24 14:36 Respiratory Rate 18 02/24/24 14:36 Blood Pressure 116/80 02/24/24 14:36 Blood Pressure Mean 92 02/24/24 14:36 Pulse Oximetry 97 02/24/24 14:36 Oxygen Delivery Method Room Air 02/24/24 14:36 Vital Signs Temperature 98.3 F 02/24/24 14:36 Pulse Rate 106 H 02/24/24 14:36 Respiratory Rate 18 02/24/24 14:36 Blood Pressure 116/80 02/24/24 14:36 Pulse Oximetry 97 02/24/24 14:36 Oxygen Delivery Method Room Air 02/24/24 14:36 Temperature 98.3 F 02/24/24 14:36 Pulse Rate 106 H 02/24/24 14:36 Respiratory Rate 18 02/24/24 14:36 Blood Pressure 116/80 02/24/24 14:36 Pulse Oximetry 97 02/24/24 14:36 Oxygen Delivery Method Room Air 02/24/24 14:36 Medical Decision Making MDM Narrative Medical decision making narrative: 33-year-old female with influenza B and a right-sided otitis media. Given that she has been sick for about a week, Tamiflu is not warranted at this time. We discussed symptomatic treatment. We will put her on amoxicillin for the otitis media. Lab Data Lab results reviewed: Yes I reviewed the patient's lab results Labs: Lab Results 02/24/24 Range/Units Unknown SARS-CoV-2 (PCR) Negative SARS-CoV-2 (Negative) Influenza Type A (PCR) Negative PCR FLU A (Negative) Influenza Type B (PCR) POSITIVE PCR FLU B A (Negative) RSV (PCR) Negative PCR RSV (Negative) Discharge Plan Discharge Clinical Impression: Influenza B, Otitis media Patient Disposition: Home, Self-Care Condition: Stable Additional Instructions: Make sure to stay well hydrated. Okay to use ibuprofen and/or Tylenol as needed/as directed for fevers and achiness. Rest as much as you need to. Return to work after you have been without a fever for 24 hours. Start taking antibiotics as directed today if possible otherwise can start tomorrow morning. Activity Level: No Restrictions Discharge Diet: Regular Prescriptions: New amoxicillin 500 mg tablet 1,000 mg PO BID 5 Days Qty: 20 0RF No Action Jardiance 10 mg tablet 10 mg PO DAILY (DME) [employer] Phoebe 2 Sensor Kit See Rx Instructions .ROUTE .MEDSUPPLY Qty: 1 Patient Comments: [NO ORIGINAL SIG] Rx Instructions: As directed Victoza 2-Josh 0.6 mg/0.1 mL (18 mg/3 mL) pen injector 0.6 mg subcut DAILY Paxlovid 300 mg (150 mg x 2)-100 mg tablets,dose pack See Rx Instructions .ROUTE .COMPLEX Qty: 30 0RF Rx Instructions: take TWO 150 mg tablets of nirmatrelvir with ONE 100 mg tablet of ritonavir twice daily for 5 days atorvastatin 20 mg tablet 20 mg PO QPM aspirin 81 mg tablet,delayed release (DR/EC) 81 mg PO DAILY metformin 500 mg tablet extended release 24 hr 2,000 mg PO DAILY etonogestrel-ethinyl estradiol 0.12-0.015 mg/24 hr ring 1 vag ring vaginal Bydureon BCise 2 mg/0.85 mL auto-injector 2 mg subcut Q7D ferrous sulfate 325 mg (65 mg iron) tablet 325 mg PO DAILY cyclobenzaprine 10 mg tablet 10 mg PO QPM PRN (Reason: for muscle spasm) Qty: 10 0RF Follow Up/Referrals: Juany Kwon MD [Primary Care Provider] - Stand Alone Forms: [employer] Info Instructions
== END 2024-02-24 16:01 | disposition home or self-care (01) ==
PROVIDERS: Emergency Provider Family Medicine; PCP Family Medicine
DX: J10.1 Influenza due to other identified influenza virus with other respiratory manifestations (principal); H66.91 Otitis media, unspecified, right ear
CPT/HCPCS: 87631; 99283; 99284

== ENCOUNTER 2024-04-09 13:00 | Outpatient (CLI) | payer OTHER, MEDICAID, SELFPAY | END 2024-04-09 13:01 | disposition home or self-care (01) | LOC: AMB 04-12 06:29 | PROVIDERS: PCP Family Medicine; Visit Provider Emergency Medicine | DX: T14.90XA Injury, unspecified, initial encounter (principal); V49.60XA Unspecified car occupant injured in collision with unspecified motor vehicles in traffic accident, initial encounter; Y92.414 Local residential or business street as the place of occurrence of the external cause | CPT/HCPCS: A0998 ==

== ENCOUNTER 2024-07-21 15:29 | Emergency (ER) | payer MEDICAID, SELFPAY ==
[2024-07-21 15:38] VITALS: BP 122/85; PULSE 87; RESP 14; TEMP 36.8; O2SAT 95; BMI 32.0
--- NOTE | 2024-07-21 15:43 | ED.FEMALEGU ---
HPI - Female Genitourinary General Time Seen by Provider: 15:44 Date Seen: 07/21/24 Chief complaint: Urogenital Problems, Female Stated complaint: Genital discomfort Time Seen by Provider: 07/21/24 15:37 Source: patient and RN notes reviewed Mode of arrival: ambulatory Limitations: no limitations History of Present Illness HPI Narrative: This 34-year-old female is coming into the ER with complaint of vaginal burning and itching. Her perineum has been painful for about a week. She did try [id number] Monistat and azo without any relief. It is significantly irritating and painful with wiping, standing and movement. She really is not having any pain with urination itself, just with wiping. She has noted no blood in the urine. She just completed her menstrual cycle and states there is no chance for . She has had no fevers with this, no abdominal pain. She does not have any history of STIs or concern for this. She does have underlying diabetes. She reports that she is been treated for bacterial vaginosis multiple times over the last few months. On questioning, no one has looked at her perineum, she has done this self collection of the swab. She believes she has done both topical and oral treatment for bacterial vaginosis. She can not really say that she is experiencing any increased vaginal discharge. She does note she did just complete her menstrual cycle. She has not been sexually active due to her symptoms. Related Data Home Medications ?Medication ?Instructions ?Recorded ?Confirmed aspirin 81 mg tablet,delayed 81 mg PO DAILY 01/23/23 11/14/23 release atorvastatin 20 mg tablet 20 mg PO QPM 01/23/23 11/14/23 etonogestrel 0.12 mg-ethinyl 1 vag ring vaginal 01/23/23 05/15/23 estradiol 0.015 mg/24 hr vaginal ring exenatide microspheres 2 mg/0.85 2 mg subcut Q7D 01/23/23 11/14/23 mL subcutaneous auto-injector ([employer] Ring) metformin 500 mg tablet,extended 2,000 mg PO DAILY 01/23/23 11/14/23 release 24 hr ferrous sulfate 325 mg (65 mg 325 mg PO DAILY 01/31/23 11/14/23 iron) tablet empagliflozin 10 mg tablet 10 mg PO DAILY 05/15/23 11/14/23 (Jardiance) flash glucose sensor ([employer]Style #1 ea 05/15/23 05/15/23 Phoebe 2 Sensor kit) liraglutide 0.6 mg/0.1 mL (18 mg/3 0.6 mg subcut DAILY 11/08/23 11/14/23 mL) subcutaneous pen injector (Victoza 2-Josh) Previous Rx's ?Medication ?Instructions ?Recorded cyclobenzaprine 10 mg tablet 10 mg PO QPM PRN for muscle spasm 08/17/23 #10 tabs nirmatrelvir 300 mg (150 mg See Rx Instructions PO .COMPLEX 11/08/23 x2)-ritonavir 100 mg tablet,dose #30 ea pack (Paxlovid) amoxicillin 500 mg tablet 1,000 mg (2 x 500 mg) PO BID 5 02/24/24 days #20 tabs clobetasol 0.05 % topical ointment 1 applic topical QHS #60 grams 07/21/24 fluconazole 150 mg tablet 150 mg PO DAILY 2 doses #2 tabs 07/21/24 Allergies Allergy/AdvReac Type Severity Reaction Status Date / Time adhesive Allergy Intermediate rash Verified 11/14/23 12:11 house dust Allergy Verified 11/14/23 12:11 allergenic extracts Allergy Severe Anaphylaxis Uncoded 05/15/23 15:30 Review of Systems Narrative: As per HPI. [facility] Medical History Urinary tract infection ?N39.0 - Urinary tract infection, site not specified (ICD-10) Viral upper respiratory tract infection ?J06.9 - Acute upper respiratory infection, unspecified (ICD-10) Sprain of ankle ?S93.409A - Sprain of unspecified ligament of unspecified ankle, initial encounter (ICD-10) Pain in pelvis ?R10.2 - Pelvic and perineal pain (ICD-10) Acute upper respiratory infection ?J06.9 - Acute upper respiratory infection, unspecified (ICD-10) Type 2 diabetes mellitus with hyperglycemia ?E11.65 - Type 2 diabetes mellitus with hyperglycemia (ICD-10) Surgical History S/P ORIF (open reduction internal fixation) fracture (02/02/23) ?Z98.890 - Other specified postprocedural states (ICD-10) ?Z87.81 - Personal history of (healed) traumatic fracture (ICD-10) Previous section ?Z98.891 - History of uterine scar from previous surgery (ICD-10) Family History Mother Diabetes Father Diabetes Social History Smoking Status: Never smoker Do you use any of these nicotine containing products: None Second hand tobacco smoke exposure: No How often do you have a drink containing alcohol: monthly or less How often do you have six or more drinks on one occasion: Never AUDIT-C Alcohol total score: 1 Non-prescribed substance use: denies use Caffeine: Yes service: No Exam Const: Vital Signs, click to edit/add: Vital Signs - 24 hr 07/21/24 15:38 Temperature 98.2 F Pulse Rate [Femora l] 87 Respiratory Rate 14 Blood Pressure [Ri ght Upper Arm] 122/85 Pulse Oximetry 95 Oxygen Delivery Me thod Room Air This 34-year-old female is alert, interactive, no apparent distress. Ambulatory into the ED of her own accord. She has no inguinal adenopathy. Inspection of her perineum reveals loss of pigmentation and white epithelium throughout her perineum and labia majora and minora. Her tissue looks reminiscent to me of potential lichen sclerosis. There is maybe a little bit of whitish discharge at the vaginal introitus, note no odor. There are no visible vesicles, no open wounds or ulcerations. Documenting provider has reviewed patient's vital signs: yes Course Course ED Course: Reviewed with patient that I am concerned that she has tissue changes that are consistent with lichen sclerosis of the vulva. If I remember correctly, this can be increased risk in patients with diabetes. Reviewed with her that treatment really is topical steroids but I do think she needs to see [facility] outpatient for confirmation and potential biopsy. This does not need to happen emergently. She certainly could have bacterial vaginosis as well and we will proceed with a vaginitis panel and treat accordingly. Reevaluation(s) Time of Reevaluation #1: 16:15 Reevaluation #1: Reviewed with patient it will take about an hour for the vaginitis panel to run. She would like to discharge, will see if she can get the steroid cream. If the vaginitis panel is positive, will treat accordingly. She understands the importance of follow-up with [facility]. Vital Signs Vital signs: Initial Vital Signs Temperature 98.2 F 07/21/24 15:38 Temperature Source Temporal Artery Scan 07/21/24 15:38 Pulse Rate 87 07/21/24 15:38 Pulse Rhythm Regular 07/21/24 15:38 Respiratory Rate 14 07/21/24 15:38 Blood Pressure 122/85 07/21/24 15:38 Blood Pressure Mean 97 07/21/24 15:38 Blood Pressure Position Sitting 07/21/24 15:38 Pulse Oximetry 95 07/21/24 15:38 Oxygen Delivery Method Room Air 07/21/24 15:38 Vital Signs Temperature 98.2 F 07/21/24 15:38 Pulse Rate 87 07/21/24 15:38 Respiratory Rate 14 07/21/24 15:38 Blood Pressure 122/85 07/21/24 15:38 Pulse Oximetry 95 07/21/24 15:38 Oxygen Delivery Method Room Air 07/21/24 15:38 Temperature 98.2 F 07/21/24 15:38 Pulse Rate 87 07/21/24 15:38 Respiratory Rate 14 07/21/24 15:38 Blood Pressure 122/85 07/21/24 15:38 Pulse Oximetry 95 07/21/24 15:38 Oxygen Delivery Method Room Air 07/21/24 15:38 MDM - Female Genitourinary Lab Data Attestation: I reviewed the patient's lab results. Lab results narrative: Patient's results were called me. The did ask that physician in the ED send in for Diflucan 150 mg x 1 with a repeat in 3 days or if needed. Labs: Lab Results 07/21/24 Range/Units 16:05 Vaginal Bacterial Vaginosis Negative (Negative) Vaginal Sarah species DETECTED A (No Detected) Vag C. glabrata/krusei NOT DETECTED (No Detected) Vag T. vaginalis NOT DETECTED (No Detected) Discharge Plan Discharge Clinical Impression: Perineal irritation in female Patient Disposition: Home, Self-Care Condition: Stable Additional Instructions: You absolutely need to follow up with [facility] for further evaluation and management of this, the phone number is [phone]. Use the topical steroid nightly for now, he will be further advised at your follow-up if this is to be continued. If you do note that this topical steroid is making her symptoms worse, please stop applying it and try to get in to [facility] as soon as possible. I do wonder if you have a condition called lichen sclerosis which can be at increased risk in diabetic patients. Confirmation may need to be done with biopsy, ultimately defer to [facility] on this. We will contact you with a vaginitis panel results, will treat accordingly if anything is positive. Prescriptions: New clobetasol 0.05 % ointment 1 applic topical QHS Qty: 60 0RF Rx Instructions: Apply a small amount throughout your perineum at night before bed. fluconazole 150 mg tablet 150 mg PO DAILY Qty: 2 0RF No Action Jardiance 10 mg tablet 10 mg PO DAILY (DME) FreeStyle Phoebe 2 Sensor Kit See Rx Instructions .ROUTE .MEDSUPPLY Qty: 1 Patient Comments: [NO ORIGINAL SIG] Rx Instructions: As directed Victoza 2-Josh 0.6 mg/0.1 mL (18 mg/3 mL) pen injector 0.6 mg subcut DAILY Paxlovid 300 mg (150 mg x 2)-100 mg tablets,dose pack See Rx Instructions .ROUTE .COMPLEX Qty: 30 0RF Rx Instructions: take TWO 150 mg tablets of nirmatrelvir with ONE 100 mg tablet of ritonavir twice daily for 5 days amoxicillin 500 mg tablet 1,000 mg PO BID 5 Days Qty: 20 0RF atorvastatin 20 mg tablet 20 mg PO QPM aspirin 81 mg tablet,delayed release (DR/EC) 81 mg PO DAILY metformin 500 mg tablet extended release 24 hr 2,000 mg PO DAILY etonogestrel-ethinyl estradiol 0.12-0.015 mg/24 hr ring 1 vag ring vaginal Bydureon BCise 2 mg/0.85 mL auto-injector 2 mg subcut Q7D ferrous sulfate 325 mg (65 mg iron) tablet 325 mg PO DAILY cyclobenzaprine 10 mg tablet 10 mg PO QPM PRN (Reason: for muscle spasm) Qty: 10 0RF Follow Up/Referrals: Juany Kwon MD [Primary Care Provider] - Stand Alone Forms: [employer] Info Instructions
[2024-07-21 17:10] LABS: Bacterial Vaginosis* Negative (Negative); Candida glab/krus NOT DETECTED (No Detected); Candida species DETECTED (No Detected); Trichomonas vaginalis NOT DETECTED (No Detected)
--- NOTE | 2024-07-21 17:24 | ED.NURSE ---
Pt positive for luna, MD aware. Pt notified.
== END 2024-07-21 16:20 | disposition home or self-care (01) ==
PROVIDERS: Emergency Provider Family Medicine; PCP Family Medicine
DX: L29.8 Other pruritus (principal)
CPT/HCPCS: 81513; 87481; 87661; 99283

== ENCOUNTER 2024-07-29 16:20 | Emergency (ER) | payer MEDICAID, SELFPAY ==
[2024-07-29] VITALS (11 sets, daily range): BP systolic 110–126; BP diastolic 68–89; PULSE 66–84; RESP 18; TEMP 36.4; O2SAT 91–100; BMI 38.4
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
[2024-07-29] MEDS: ONDANSETRON 2 MG/ML inj 4 MG IVP (17:07)
[2024-07-29 17:09] LABS: Appearance Urine Cloudy (Clear); Bilirubin Urine Negative (Negative); Blood Urine 3+ (Negative); Color Urine Orange (Yellow); Glucose Urine 2+ (Negative); Ketones Urine 4+ (Negative); Leukocyte Esterase Urine Negative (Negative); Nitrite Urine Negative (Negative); Protein Urine 1+ (Negative); Urobilinogen Urine 0.2 (0.2-1.0)
[2024-07-29] MEDS: 0.9 % SODIUM CHLORIDE 1000 ml 1,000 ML IV (17:10)
[2024-07-29 17:18] LABS: HCO3 VBG 21 mmol/L (21-28); PCO2 VBG 29 mmHG (40-50); PO2 VBG 34.8 mmHG (25-47); pH VBG 7.471 (7.32-7.43)
--- OUTSIDE RECORDS SUMMARY | 2024-07-29 17:18 | XMS_ITS ---
Author Organization Unknown Patient Care team information Name Category Status Period Participants - - Proposed period not known -
[2024-07-29 17:20] LABS: Basophils Absolute Auto 0.02 K/uL (0.00-0.30); Basophils Percent Auto 0.2 % (0.0-3.0); Hematocrit 38.9 % (33.0-51.0); Hemoglobin* 13.6 gm/dL (12.0-16.0); Immature Granulocytes Abs Auto 0.03 K/uL (0.00-0.30); Immature Granulocytes Pct Auto 0.4 %; Lymphocytes Absolute Auto 1.94 K/uL (0.90-2.90); Lymphocytes Percent Auto 23.1 % (20-44); Mean Corpuscular HGB Conc 35 gm/dL (32-36); Mean Corpuscular Hemoglobin 28 pg (26-34); Mean Corpuscular Volume 81 fL (80-100); Monocytes Percent Auto 5.2 % (0.0-11.0); Neutrophils Absolute Auto 5.98 K/uL (1.7-7.0); Neutrophils Percent Auto 71.1 % (42.0-72.0); Platelet Count* 331 K/uL (140-440); RDW Coefficient of Variation % 11.7 % (11.5-15.5); Red Blood Count 4.81 m/uL (4.00-5.20); White Blood Count* 8.41 K/uL (4.50-11.00)
[2024-07-29 17:32] LABS: RBC Urine 50-100 (0-2); Squamous Epithelial Cell Urine Moderate (None-Few); WBC Urine 0-2 (0-5)
[2024-07-29 17:33] LABS: Calcium Oxalate Crystals Urine Moderate
[2024-07-29 17:35] LABS: Slide Review Reflex No
--- NOTE | 2024-07-29 17:46 | CRLHL7_ITS ---
For Patients: As a result of the Century Cures Act, medical imaging exams and procedure reports are released immediately into your electronic medical record. You may view this report before your referring provider. If you have questions, please contact your health care provider. Indication: Hematuria and vomiting Technique: CT abdomen and pelvis without contrast Comparison: CT abdomen and pelvis 10/13/2021 Findings: Lower chest is clear. The liver, gallbladder, spleen, adrenal glands, pancreas and kidneys are normal. Partially filled urinary bladder is grossly unremarkable. There are no pelvic cysts or masses. The appendix is normal. The hollow viscera is without obstruction. There is no ascites, free air or lymphadenopathy. The abdominal aorta is normal in course and caliber. Very small fat containing umbilical hernia is noted. Bones are age-appropriate. Impression: Negative noncontrast CT of the abdomen and pelvis/no acute appendicitis, obstructive uropathy or bowel obstruction. Please note that all CT scans at this facility use dose modulation, iterative reconstruction, and/or weight-based dosing when appropriate to reduce radiation dose to as low as reasonably achievable. Dictated by Scott Khan MD @ 07/29/2024 6:12:20 PM (Electronically Signed)
[2024-07-29 17:55] LABS: Albumin* 4.8 g/dL (3.3-5.0); Chloride* 102 mmol/L (96-114)
[2024-07-29 17:56] LABS: Potassium* 3.8 mmol/L (3.6-5.1); Sodium* 136 mmol/L (135-149)
[2024-07-29 17:58] LABS: Creatinine* 0.5 mg/dL (0.5-1.5); Est. Creatinine Clearance* 127.76; Estimated Glomerular Filt Rate 128 ml/min
[2024-07-29 17:58] LABS: Ur HCG Qualitative* Negative (Negative)
[2024-07-29 17:59] LABS: Alanine Aminotransferase* 14 U/L (4-35); Alkaline Phosphatase* 81 U/L (40-150); Anion Gap 16 mEq/L (7-15); Aspartate Amino Transferase* 19 U/L (12-35); Bilirubin Direct* 0.4 mg/dL (0.0-0.5); Bilirubin Total* 0.9 mg/dL (0.1-1.5); Blood Urea Nitrogen* 8 mg/dL (5-24); Calcium* 9.7 mg/dL (8.4-10.6); Carbon Dioxide* 18 mmol/L (20-32); Glucose* 270 mg/dL (60-115); Lipase* 101 U/L (23-300); Total Protein* 8.2 g/dL (6.0-8.3)
[2024-07-29 18:06] LABS: C Reactive Protein* < 0.5 mg/dL (0.5-1.0)
== END 2024-07-29 19:03 | disposition home or self-care (01) ==
PROVIDERS: Emergency Provider Emergency Medicine; PCP Family Medicine
DX: R11.10 Vomiting, unspecified (principal); T50.995A Adverse effect of other drugs, medicaments and biological substances, initial encounter
CPT/HCPCS: 36415; 74176; 80048; 80076; 81001; 81025; 82803; 83605; 83690; 83735; 85025; 86140; 96374; 99284; J2405; J7030